=== PATIENT | male | born 1990 | race Caucasian/White ===

== ENCOUNTER 2021-01-26 08:43 | Emergency (ER) | payer OTHER ==
[~2021-01-26] VITALS: Ht 180.3 cm; Wt 92.5 kg
[2021-01-26 08:43] VITALS: BP 151/97
[2021-01-26] MEDS ORDERED: ONDANSETRON ODT 4 MG TAB.RAPDIS PO ONE (09:00)
[2021-01-26] MEDS ORDERED: LIDO:MAALOX 1:1 20 ML SINGLE DOSE. PO ONE (09:00)
--- NOTE | 2021-01-26 09:05 | PHYS DOC ---
General Adult EDM: Chief Complaint: MULTIPLE COMPLAINTS HPI: HPI: Patient is a 30-year-old male coming in for substernal chest pain going on for the past week. Is not worse over the past 72 hours since he has been vomiting. Taking [id number] Advil who has improved. Also complaining of congestion. Patient states he has allergies. Emesis is nonbloody or bilious but has had some mucus in it. Has had a cough with vomiting. Has had some loose stools but denies diarrhea. Patient is also concerned as blood pressure, states she is a family history of hypertension but usually has systolic of 120. Denies any fevers. Denies any lower extremity edema, paresthesias, numbness, headaches. Review of Systems: Review of Systems: All other systems within normal limits except for as noted in the HPI Current Medications: Current Meds: Current Medications Medications (Trade) Dose Ordered Sig/Monika Start Time Stop Time Status Last Admin Dose Admin Multi-Ingredient Mouthwash/Gargle (Gi Cocktail) 20 ml 1X ONCE 01/26/21 09:00 01/26/21 09:01 DC Ondansetron HCl (Zofran Odt) 4 mg 1X ONCE 01/26/21 09:00 01/26/21 09:01 DC Allergies: Allergies: Allergies Coded Allergies Type Severity Reaction Last Updated Verified No Known Drug Allergies 01/26/21 No Physical Exam: PE: Constitutional: Well developed, well nourished, no acute distress, non-toxic appearance. [] HENT: Normocephalic, atraumatic, bilateral external ears normal, nose normal. [] Eyes: PERRLA, conjunctiva normal, no discharge. [] Neck: No rigidity, supple, no stridor. [] Cardiovascular: Regular rate and rhythm, brisk cap refill [] Lungs & Thorax: Non labored symmetric respirations, no tachypnea or respiratory distress [] Abdomen: Soft, nondistended. Skin: Warm, dry, no erythema, no rash. [] Back: Unremarkable Extremities: No deformities, range of motion grossly intact, no lower extremity edema [] Neurologic: Alert and oriented X 3, no focal deficits noted. [] Psychologic: Affect normal, judgement normal, mood normal. [] EKG: EKG: Sinus rhythm, heart rate 55 bpm, benign early repole, no reciprocal depressions, no ectopy, normal axis. [] Radiology/Procedures: Radiology/Procedures: EXAM: Chest, single view. HISTORY: Chest pain. COMPARISON: None. FINDINGS: A frontal view of the chest obtained. There is no infiltrate, pleural effusion or pneumothorax. The heart is normal in size. IMPRESSION: No acute pulmonary finding.[] Heart Score: C/O Chest Pain: Yes HEART Score for Chest Pain: HEART Score for Chest Pain Response (Comments) Value History Slighlty/Non-Suspicious 0 ECG Nonspecific Repolarizatio 1 Age < 45 0 Risk Factors No Risk Factors 0 Troponin < Normal Limit 0 Total 1 Risk Factors: Risk Factors: DM, Current or recent (<one month) smoker, HTN, HLP, family history of CAD, obesity. Risk Scores: Score 0 - 3: 2.5% MACE over next 6 weeks - Discharge Home Score 4 - 6: 20.3% MACE over next 6 weeks - Admit for Clinical Observation Score 7 - 10: 72.7% MACE over next 6 weeks - Early Invasive Strategies Course & Med Decision Making: Course & Med Decision Making Per inent Labs and Imaging studies reviewed. (See chart for details) [] Work-up unremarkable. Pain resolved with GI cocktail. Dragon Disclaimer: Dragon Disclaimer: This electronic medical record was generated, in whole or in part, using a voice recognition dictation system. Departure Departure: Impression: Primary Impression: GERD (gastroesophageal reflux disease) Additional Impression: Allergies Disposition: 01 HOME / SELF CARE / HOMELESS Condition: STABLE Referrals: PCP,NO (PCP) Patient Instructions: Diet for Gastroesophageal Reflux Disease, Adult Scripts Cetirizine Hcl (ZYRTEC) 10 Mg Tablet 1 TAB PO DAILY for antihistamine for 14 Days, #14 TAB 2 Refills Prov: JANET WASHINGTON MD 01/26/21 Omeprazole (OMEPRAZOLE) 40 Mg Capsule.dr 1 CAP PO DAILY for antacid for 14 Days, #14 CAP 3 Refills Prov: JANET WASHINGTON MD 01/26/21 Sucralfate (CARAFATE) 1 Gm/10 Ml Oral.susp 10 ML PO QID PRN for reflux pain for 5 Days, #200 ML 0 Refills before food Prov: JANET WASHINGTON MD 01/26/21 Ondansetron (ONDANSETRON ODT) 4 Mg Tab.rapdis 1 TAB PO PRN Q6-8HRS PRN for NAUSEA for 3 Days, #3 TAB Prov: JANET WASHINGTON MD 01/26/21 JANET WASHINGTON MD January 26, 2021 09:05
[2021-01-26 09:25] LABS: BASO % 0 % (0-3); EOS # 0.4 x10^3/uL (0.0-0.7); EOS % 4 % (0-3); HEMATOCRIT 44.5 % (39.0-53.0); HEMOGLOBIN 15.1 g/dL (13.0-17.5); LYMPH # 1.4 x10^3/uL (1.0-4.8); LYMPH % 13 % (24-48); MEAN CORPUSCULAR HEMOGLOBIN 30 pg (25-35); MEAN CORPUSCULAR HGB CONC 34 g/dL (31-37); MEAN CORPUSCULAR VOLUME 88 fL (79-100); MONO # 0.8 x10^3/uL (0.0-1.1); MONO % 8 % (0-9); NEUT # 7.7 x10^3uL (1.8-7.7); NEUT % 75 % (31-73); PLATELET COUNT 179 x10^3/uL (140-400); RED BLOOD COUNT 5.03 x10^6/uL (4.30-5.70); RED CELL DISTRIBUTION WIDTH 13.5 % (11.5-14.5); WHITE BLOOD COUNT 10.3 x10^3/uL (4.0-11.0)
[2021-01-26 09:46] LABS: CALCIUM 9.2 mg/dL (8.5-10.1); CREATININE 1.2 mg/dL (0.7-1.3); GFR 70.2; POTASSIUM 4.6 mmol/L (3.5-5.1)
[2021-01-26 09:52] LABS: ALBUMIN/GLOBULIN RATIO 1.2 (1.0-1.7); MAGNESIUM 2.1 mg/dL (1.8-2.4); TOTAL BILIRUBIN 0.7 mg/dL (0.2-1.0); TOTAL PROTEIN 7.4 g/dL (6.4-8.2)
--- NOTE | 2021-01-26 10:28 | RAD ---
EXAM: Chest, single view. HISTORY: Chest pain. COMPARISON: None. FINDINGS: A frontal view of the chest obtained. There is no infiltrate, pleural effusion or pneumotho rax. The heart is normal in size. IMPRESSION: No acute pulmonary finding. Electronically signed by: Gudelia Savage MD (01/26/2021 10:26 AM) [id number]
[2021-01-26] MEDS ORDERED: ONDA4TAB12 PO (10:52)
[2021-01-26] MEDS ORDERED: SUCR1ORA5 PO (10:52)
[2021-01-26] MEDS ORDERED: CETI10TA74 PO (10:52)
[2021-01-26] MEDS ORDERED: OMEP40CA45 PO (10:52)
--- NOTE | 2021-01-26 12:34 | EKG ---
[address] [address] Test Date: 2021-01-26 Test Time: 08:50:33 Pat Name: BAUTISTA BARGER Department: Room: Gender: M Executive Coach: LYUBOV : 1990 Requested By: JANET WASHINGTON Order Number: [id number] Reading MD: Measurements Intervals [place] Rate: 55 P: 47 LA: 210 QRS: 64 QRSD: 84 T: 34 QT: 390 QTc: 375 Interpretive Statements SINUS RHYTHM OTHERWISE NORMAL ECG RI6.02 No previous ECG available for comparison
== END 2021-01-26 10:50 | disposition home or self-care (01) ==
LOC: ER 08:43
DX: K21.9 Gastro-esophageal reflux disease without esophagitis (principal); R07.89 Other chest pain
CPT/HCPCS: 36415; 71045; 80053; 83690; 83735; 84484; 85025; 85379; 93005; 99285; Q0162